=== PATIENT | female | born 1935 | race Caucasian/White ===

== ENCOUNTER → 2016-12-14 | Outpatient (CLI) | payer OTHER, MEDICARE ==
[~2016-12-14] MED LIST: AMLODIPINE BESYL5 MG PO; ASPIR 8181 MG PO; CARAFATE 1 GM TA1 G1 PO; CENTRUM SILVER1 EAC4 PO; COREG3.125 MG PO; HYDROCHLOROTH12.5 M2 PO; HYDROCODONE-AP1 EAC6 PO; LISINOPRIL10 MG PO; LISINOPRIL20 MG PO; NEURONTIN 300300 M1 PO; PEPCID20 MG PO
== END ==
LOC: ULTRA 16:41
DX: M79.89 Other specified soft tissue disorders (principal)

== ENCOUNTER → 2021-04-07 | Outpatient (CLI) | payer OTHER, MEDICARE | LOC: ULTRA 09:14 | PROVIDERS: ATTEND Family Medicine | DX: K76.0 Fatty (change of) liver, not elsewhere classified (principal); N28.1 Cyst of kidney, acquired; R16.1 Splenomegaly, not elsewhere classified; R79.89 Other specified abnormal findings of blood chemistry ==